=== PATIENT | female | born 1970 | race Caucasian/White ===

== ENCOUNTER 2017-01-25 20:06 | Emergency (ER) | payer BC ==
--- NOTE | 2017-01-26 19:14 | ER ---
ADMIT: 01/25/2017 RM/LOC: ER [facility] MR#: [id number] [id number] [id number] [place] [address] [place] [address] Emergency Room Report SEX: F AGE: 47 : 1970 DATE: 01/25/2017 HISTORY OF PRESENT ILLNESS: The patient is a 47-year-old female with a past medical history of fibromyalgia, hypertension, and hypothyroidism, came to the ER with chief complaint of generalized body pain for 3 days, which waxes and wanes and recently became more constant and the patient had similar pain in the past for a long time, many years allegedly. The patient denies any trauma, denies any aggravating or alleviating factors. The patient denies any shortness of breath. Pain on the chest and abdomen is generalized and is not related to position or exertion. PHYSICAL EXAMINATION: VITAL SIGNS: The patient has stable vitals. HEAD AND NECK: Noncontributory. No bruit on the neck, trachea midline, normal. HEART: Sounds S1, S2 without any extra sounds, normal bilateral equal breath sounds without any crackles or wheezing. ABDOMEN: Soft, without any pulsating mass. EXTREMITIES: Has no tenderness or swelling. The rest of the physical exam is noncontributory. The patient received Toradol IM, EKG showed normal sinus rhythm with a rate of [address] or T changes or Q-waves. The patient states the pain got better significantly. The patient has no chest pain or other complaints at the moment and states she feels good enough to go home and follow with the primary doctor. The patient did not develop any new symptoms in the repeat physical examination, was discharged to home. Taj Orozco MD/ birdie JOB #: [id number] CC: Taj Orozco MD, Attending Physician Paula Gay APRN-DELIA, Family Physician
== END 2017-01-25 22:30 | disposition home or self-care (01) ==
LOC: ER 20:06
DX: R07.9 Chest pain, unspecified (principal); I10 Essential (primary) hypertension; Z79.899 Other long term (current) drug therapy

== ENCOUNTER → 2017-02-09 | Outpatient (CLI) | payer BC | END | disposition home or self-care (01) | LOC: RAD.S 09:52 | DX: M25.512 Pain in left shoulder (principal) ==